=== PATIENT | male | born 1995 | race Caucasian/White ===

== ENCOUNTER 2018-09-19 20:25 | Emergency (ER) | payer OTHER ==
[~2018-09-19] VITALS: Ht 177.8 cm; Wt 69.4 kg
== END 2018-09-19 22:43 | disposition home or self-care (01) ==
LOC: ER 20:25
DX: S66.912A Strain of unspecified muscle, fascia and tendon at wrist and hand level, left hand, initial encounter (principal); X50.9XXA Other and unspecified overexertion or strenuous movements or postures, initial encounter; Y93.89 Activity, other specified; Y92.89 Other specified places as the place of occurrence of the external cause; Y99.8 Other external cause status

== ENCOUNTER 2018-09-28 18:48 | Emergency (ER) | payer OTHER ==
[~2018-09-28] VITALS: Ht 177.8 cm; Wt 69.4 kg
[2018-09-28] MEDS ORDERED: PANADOL EXTRA500 MG (19:27)
== END 2018-09-29 00:28 | disposition home or self-care (01) ==
LOC: ER 18:48
DX: J02.8 Acute pharyngitis due to other specified organisms (principal)

== ENCOUNTER → 2020-01-06 | Emergency (ER) | payer OTHER ==
[~2020-01-06] VITALS: Ht 177.8 cm; Wt 70.3 kg
[~2020-01-06] MED LIST: PANADOL EXTRA500 MG
== END | disposition left against medical advice (07) ==
LOC: ER 19:57
DX: Z53.20 Procedure and treatment not carried out because of patient's decision for unspecified reasons (principal)

== ENCOUNTER 2021-05-25 23:24 | Emergency (ER) | payer OTHER ==
[~2021-05-25] VITALS: Ht 177.8 cm; Wt 79.4 kg
[2021-05-26] MEDS ORDERED: MEDROLPACK PO (01:31)
[2021-05-26] MEDS ORDERED: BENADRYL ALLERG25 MG PO (01:31)
[2021-05-26] MEDS ORDERED: ACETAMINOPHEN650 M2 (01:45)
== END 2021-05-26 02:33 | disposition home or self-care (01) ==
LOC: ER 23:24
DX: R21 Rash and other nonspecific skin eruption (principal); L30.9 Dermatitis, unspecified

== ENCOUNTER 2021-07-01 08:30 | Emergency (ER) | payer OTHER ==
[~2021-07-01] VITALS: Ht 177.8 cm; Wt 81.6 kg
[~2021-07-01 08:30] MED LIST changes: +ACETAMINOPHEN650 M2; +BENADRYL ALLERG25 MG PO; +MEDROLPACK PO
[2021-07-01] MEDS ORDERED: AMOXICILLIN500 M1 PO (09:10)
== END 2021-07-01 09:56 | disposition home or self-care (01) ==
LOC: ER 08:30
DX: J02.9 Acute pharyngitis, unspecified (principal); I10 Essential (primary) hypertension